=== PATIENT | male | born 1975 | race Caucasian/White ===

== ENCOUNTER 2023-05-18 07:29 | Day surgery (SDC) | payer BC ==
[2023-05-18] MEDS ORDERED: Sodium Chloride 0.9(Preservative Free) 10 ML IJ ONE (07:30)
[2023-05-18] MEDS ORDERED: Depo-Medrol 40 MG/ML IM ONE (07:30)
[2023-05-18] MEDS ORDERED: DIPRIVAN 200 MG/20 ML IV ONE (09:07)
--- NOTE | 2023-05-18 10:19 | XRAY ---
Indication: Left L4-S1 transforaminal RENÉE. Intraoperative fluoroscopy provided for 24 seconds. 5 digital spot image submitted for interpretation demonstrates posterior needle tips projecting over the expected left L4 and L5 nerve roots. Small amount of contrast injected for needle tip placement. Correlate with intraoperative findings/report.
--- NOTE | 2023-05-18 10:43 | XRAY ---
24 seconds of fluoroscopy was used in surgery for a left L4-S1 transforaminal RENÉE.
[2023-05-18] MEDS ORDERED: Lactated Ringers 1,000 ML IV ONE (11:01)
== END 2023-05-18 09:35 | disposition home or self-care (01) ==
LOC: SDC-PAIN 07:29
PROVIDERS: ATTEND Psychiatry & Neurology Pain Medicine
DX: M54.16 Radiculopathy, lumbar region (principal); E11.9 Type 2 diabetes mellitus without complications; Z79.899 Other long term (current) drug therapy
CPT/HCPCS: 64483; 64484; 72100; 77003; 82947; J1030; J2704; Q9966

== ENCOUNTER 2024-03-07 07:32 | Day surgery (SDC) | payer BC ==
[2024-03-07] MEDS ORDERED: Decadron 4 MG INJ IV ONE (07:33)
[2024-03-07] MEDS ORDERED: Sodium Chloride 0.9(Preservative Free) 10 ML IJ ONE (07:33)
[2024-03-07] MEDS ORDERED: DIPRIVAN 200 MG/20 ML IV ONE (09:21)
[2024-03-07] MEDS ORDERED: Lactated Ringers 1,000 ML IV ONE (09:41)
--- NOTE | 2024-03-07 10:57 | XRAY ---
Indication: Left L4-S1 transforaminal RENÉE. Intraoperative fluoroscopy provided for 27 seconds. 4 digital spot images submitted for interpretation demonstrates posterior needle tips projecting over expected left L4 and L5 nerve roots. Small amount of contrast injected for needle tip placement. Correlate with intraoperative findings/report.
--- NOTE | 2024-03-07 10:59 | XRAY ---
27 seconds of fluoroscopy was used in surgery for a left L4-S1 transforaminal RENÉE.
== END 2024-03-07 09:45 | disposition home or self-care (01) ==
LOC: SDC-PAIN 07:32
PROVIDERS: ATTEND Psychiatry & Neurology Pain Medicine
DX: M54.16 Radiculopathy, lumbar region (principal); E11.9 Type 2 diabetes mellitus without complications
CPT/HCPCS: 64483; 64484; 72100; 77003; 82947; J1100; J2704; Q9966

== ENCOUNTER 2024-10-29 09:50 | Day surgery (SDC) | payer BC ==
--- NOTE | 2024-10-29 11:32 | HP ---
HISTORY OF PRESENT ILLNESS: Last colonoscopy 5-6 years ago. He is in need of followup screening. No bloody stools. He has had history of some intermittent hemorrhoid issues and prolapsing, is interested in considering banding if indicated, some bleeding at times but no bloody stools every day. Otherwise, no new pain. Family history negative for colon cancer. PAST MEDICAL HISTORY: Type 2 diabetes, hyperlipidemia, and arthritis in his back. HOME MEDICATIONS: Include Mounjaro, metformin, Zetia, and atorvastatin. ALLERGIES: No known drug allergies. PAST SURGICAL HISTORY: Appendectomy, colonoscopy, and back surgery in the past. SOCIAL HISTORY: No smoking. Noted to drink alcohol 3 to 4 times a week. FAMILY HISTORY: Negative for colon cancer. REVIEW OF SYSTEMS: Twelve systems reviewed. No chest pain or palpitations. Other systems negative or noncontributory as above and per preadmission questionnaire. PHYSICAL EXAMINATION: GENERAL: Height 5 feet 10 inches. BMI 29.4. No acute distress. HEENT: Sclerae nonicteric. NECK: No JVD. CHEST: Clear. Equal excursion, nonlabored breathing. CARDIOVASCULAR: Regular rate and rhythm. ABDOMEN: Soft. SKIN: Dry. EXTREMITIES: No cyanosis or edema. NEUROLOGIC: Alert and oriented. Moving extremities symmetrically. PSYCHIATRIC: Appropriate mood and affect. RECTAL: Deferred. IMPRESSION: The patient is need of screening colonoscopy followup. He has had some history of some prolapsing hemorrhoids and bleeding, possibly hemorrhoid banding if indicated at time of procedure. General risks of bleeding, infection, risk of bowel injury or perforation, risk of misdiagnosis or incomplete exam possibility requiring barium enema or other studies or procedures, risk of anesthesia or sedation, risk of bowel prep but not limited to, risk of hemorrhoid progression possibly requiring other procedures, banding or excision or other treatments, risk of aches and pains or infection or bleeding but not limited to. Otherwise, he needs to continue high fiber diet or Metamucil fiber containing products for soft, bulky stools. He is to avoid straining at time of stooling to minimize hemorrhoid production. Otherwise, continue medications for hyperlipidemia, diabetes, and arthritis. Will schedule outpatient colonoscopy under MAC anesthesia, possible internal hemorrhoid banding.
[2024-10-29] MEDS ORDERED: Xylocaine-Mpf 2% 5 Ml Vial ONE (12:11)
[2024-10-29] MEDS ORDERED: Versed 2 MG/2 ML Injection ONE (12:11)
[2024-10-29] MEDS ORDERED: DIPRIVAN 200 MG/20 ML IV ONE ×2 (12:11→12:22)
[2024-10-29] MEDS ORDERED: SUBLIMAZE 250 MCG/5 ML ONE (12:21)
[2024-10-29 13:04] VITALS: O2SAT 95
[2024-10-29 13:46] VITALS: BP 137/90; PULSE 85; RESP 18; TEMP 97.8
--- NOTE | 2024-10-30 11:54 | OP ---
SURGERY DATE/TIME: 10/29/2024 [id number] PREOPERATIVE DIAGNOSIS: Need for followup screening colonoscopy, history of some prolapsing internal and external hemorrhoids. POSTOPERATIVE DIAGNOSES: 1) ASA Class 2. 2) Colon polyps. 3) Diverticulosis left colon. 4) Grade 2 to 3 internal and external hemorrhoids. 5) Fair bowel prep. PROCEDURES: 1) Colonoscopy of the cecum; hot snare polypectomy 6 mm transverse colon polyp removed with hot snare polypectomy. 2) Hot biopsy polypectomy of 2.5 mm transverse colon polyp. 3) Internal hemorrhoid banding x3 columns. SURGEON: Kian Sullivan MD. DESCRIPTION OF PROCEDURE AND FINDINGS: The patient was taken to the operating room. MAC anesthesia was induced after official time-out and no disagreement with planned procedure. After MAC anesthesia was introduced, digital rectal exam revealed some internal and external hemorrhoids. Video colonoscope was inserted and passed through tortuous sigmoid, descending, transverse, ascending colon around to the cecum. Appendiceal orifice and bowel wall visualized, limited by the only fair prep with a large amount of liquidy and semi-liquidy stool. This was suction irrigated as clear as possible in the appendiceal area and bowel documented. The scope was carefully withdrawn over the next 10 minutes. No signs of any large polyps, masses, or obstructing lesions. There was a 6 or 7 mm polyp in the transverse colon. It was removed with hot snare polypectomy. This was pretty smooth and might even be hyperplastic in nature but was removed with hot snare polypectomy and good hemostasis was noted. A little bit further downstream in the transverse colon, a 2 mm early polyp versus hyperplastic lesion was removed with hot biopsy forceps. Good hemostasis noted. Otherwise, scope pulled back around the left colon. There were a few small diverticula. No signs of any large polyps, masses, or obstructing lesions. The scope was pulled back into the rectum. Prominent internal and external hemorrhoids being consistent with grade 2 to 3 internal and external hemorrhoids. Since he has been having some bleeding, he had requested a trial of banding. It was felt this was worthwhile. The scope was withdrawn. He remained under MAC anesthesia. Half bae retractor and lubricated retractor were carefully inserted, starting first with the left lateral top edge of the internal hemorrhoid column. Suction director manufacturing engineering applied a band at the top edge of the internal hemorrhoid with a good tuft of tissue noted. This was repeated in the right posterior and then again in the right anterior position with good tuft of tissue in all positions. Adequate hemostasis. The patient is going to do sitz baths, high-fiber diet or Metamucil until soft bulky stools. Avoid straining at time of stooling and take Tylenol or Tylenol Extra-Strength p.r.n. aches just as needed or once or twice a day. Findings discussed with family out in the waiting area.
== END 2024-10-29 13:46 | disposition home or self-care (01) ==
LOC: SDC 09:50
PROVIDERS: ATTEND Surgery
DX: Z12.11 Encounter for screening for malignant neoplasm of colon (principal); E11.9 Type 2 diabetes mellitus without complications; D12.3 Benign neoplasm of transverse colon; Z87.19 Personal history of other diseases of the digestive system; K57.30 Diverticulosis of large intestine without perforation or abscess without bleeding; K64.4 Residual hemorrhoidal skin tags; K64.8 Other hemorrhoids
CPT/HCPCS: 82947; J2250; J2704; J3010